=== PATIENT | female | born 1980 | race Caucasian/White ===

== ENCOUNTER 2016-08-19 18:40 | Emergency (ER) | payer SELFPAY ==
[2016-08-19 18:47] VITALS: BP 115/82; BMI 21.0
--- NOTE | 2016-08-19 20:57 | DR.GENAD ---
HPI - PCP Primary Care Physician: garcia - HPI Comment HPI Comment: PAIN WORSE TODAY. NO FEVER OR DYSURIA. HISTORY PANCREATITIS. NOT HOLDING DOWN FOOD AND BREARLY HOLDING DOWN FLUID. - Complaint/Symptoms Chief Complaint Doctors Comments: LUQ ABDOMINAL PAIN WITH N/V FOR SEVERAL DAYS. Chief Complaint:: pt c/o pain in luq pt has hx of pancreatisis - Nurses notes reviewed Nurses Notes Review: Yes - Source History Provided: Patient - Mode of Arrival Mode of Arrival: Ambulatory - Timing Onset of Chief Complaint: 08/16/16 Came on: Gradually - Duration Duration: Constant Duration: Days - Severity Severity: Moderate PMH - PMH Past Medical History: Yes Past Medical History: CHF, Hypertension Past Medical History Comment: pancreatisis Past Surgical History: Yes Surgical History: , Hysterectomy Past Surgical History Comment: rt cw pac - Family History History of Family Medical Conditions: Yes Family Medical History: Hypertension - Social History Alcohol Use: None Do you use any recreational Drugs:: No Lives With: Family Lives Where: Home - infectious screening In the last 2 months have you had wt loss of >10#?: NO Have you had fever, night sweats or hemotysis?: No Have you traveled outside the country in the last 6 months?: No Isolation: Standard ROS - Review of Systems Constitutional: Weakness, Fatigue, Loss of Appetite. negative: Chills, Fever Eyes: No Symptoms Reported. negative: Eye Pain, Discharge ENTM: No Symptoms Reported. negative: Ear Pain, Nose Discharge, Nose Congestion , Throat Pain Respiratoy: No Symptoms Reported. negative: Productive Cough, Non-Productive Cough, Short of Breath, Wheezing, Hemoptysis Cardiovascular: negative: Chest Pain, Edema, Palpitations, Syncope Gastrointestinal/Abdominal: Abdominal Pain, Nausea, Vomiting. negative: Diarrhea Genitourinary: No Symptoms Reported. negative: Dysuria, Frequency, Hematuria Neurological: Headache, Weakness, Dizziness Musculoskeletal: Muscle Pain Integumentary: Dryness Endocrine: No Symptoms Reported All Other Systems: Reviewed and Negative PE - Vital Signs Vitals: Temperature 98.4 F Pulse Rate 76 Respiratory Rate 18 Blood Pressure 115/82 O2 Sat by Pulse Oximetry 99 - General Limitations: No Limitations General Appearance: Alert - Head Head Exam: Normal Inspection - Eyes Eye exam: Normal Appearance - ENT ENT Exam: Normal External Ear Exam External Ear Exam: Normal External Inspection TM/Canal Exam: Bilateral Normal Nose Exam: Normal Nose Exam Mouth Exam: Normal Inspection Throat Exam: Normal Inspection - Neck Neck Exam: Normal Inspection - Chest Chest Inspection: Normal Inspection - Respiratory Respiratory Exam: Normal Lung Sounds Bilat Respiratory Exam: Bilateral Clear to Auscultation - Cardiovascular Cardiovascular Exam: Regular Rate, Normal Rhythm, Normal Heart Sounds - Abdominal Exam Abdominal Exam: Normal Bowel Sounds, Soft, Tenderness - Extremities Extremities Exam: Normal Inspection - Back Back Exam: Normal Inspection - Neurologic Neurological Exam: Alert, Oriented X3 - Psychiatric Psychiatric Exam: Anxious - Skin Skin Exam: Normal Color MDM - Additional Information Additional Information Obtained From: Family - Differential Diagnosis Differential Diagnosis: ABDOMINAL PAIN, PUD, PANCREATITIS UTI, Course - Treatment Treatment: SEE ORDERS. IM NAUSEA AND PAIN MED IN ED. - Reevaluation 1st: Improved - Education/Counseling Education/Counseling: Patient, Family, Education Educated On: Treatment, Diagnosis, Needs for Follow Up ROR - Labs Reviewed Laboratory Results Reviewed?: Yes Result Diagrams: 08/19/16 21:13 08/19/16 21:13 Laboratory: WBC 6.0 X10^3/uL (3.6-10.0) 08/19/16 21:13 RBC 4.46 X10^6/uL (3.5-5.4) 08/19/16 21:13 Hgb 13.4 g/dL (12.0-16.0) 08/19/16 21:13 Hct 39.7 % (36.0-47.0) 08/19/16 21:13 MCV 88.9 fL (80.0-100.0) 08/19/16 21:13 MCH 30.1 pg (27.0-34.0) 08/19/16 21:13 MCHC 33.8 g/dL (33.0-35.0) 08/19/16 21:13 RDW 13.9 % (11.6-16.5) 08/19/16 21:13 Plt Count 196 X10^3/uL (150.0-450.0) 08/19/16 21:13 MPV 9.1 fL (7.4-11.0) 08/19/16 21:13 Neut % 50.8 % (42.0-75.0) 08/19/16 21:13 Lymph % 36.8 % (21.0-51.0) 08/19/16 21:13 M[place]racken % 8.3 % (0.0-13.0) 08/19/16 21:13 Eos % 3.6 % (0.9-2.9) H 08/19/16 21:13 Baso % 0.5 % (0.2-1.0) 08/19/16 21:13 Neut # 3.0 x10^3/uL (2.2-4.8) 08/19/16 21:13 Lymph # 2.2 X10^3/uL (1.3-2.9) 08/19/16 21:13 [place]racken # 0.5 x10^3/uL (0.3-0.8) 08/19/16 21:13 Eos # 0.2 x10^3/uL (0.0-0.2) 08/19/16 21:13 Baso # 0.0 X10^3/uL (0.0-0.1) 08/19/16 21:13 Absolute Nucleated RBC 0.2 /100WBC 08/19/16 21:13 Sodium 139 mmol/L (136-145) 08/19/16 21:13 Corrected Sodium TNP 08/19/16 21:13 Potassium 5.0 mmol/L (3.5-5.1) 08/19/16 21:13 Chloride 105 mmol/L (98-107) 08/19/16 21:13 Carbon Dioxide 25.8 mmol/L (21-32) 08/19/16 21:13 BUN 5 mg/dL (7-18) L 08/19/16 21:13 Creatinine 0.78 mg/dL (0.55-1.02) 08/19/16 21:13 Est GFR (MDRD) Af Amer > 60 (>60) 08/19/16 21:13 Est GFR (MDRD) Non-Af > 60 (>60) 08/19/16 21:13 Glucose 83 mg/dL (65-99) 08/19/16 21:13 Calcium 8.7 mg/dL (8.5-10.1) 08/19/16 21:13 Corrected Calcium TNP 08/19/16 21:13 Total Bilirubin 0.30 mg/dL (0.2-1.0) 08/19/16 21:13 AST 26 Units/L (15-37) 08/19/16 21:13 ALT 19 Units/L (12-78) 08/19/16 21:13 Alkaline Phosphatase 122 Units/L (46-116) H 08/19/16 21:13 Total Protein 7.8 g/dL (6.4-8.2) 08/19/16 21:13 Albumin 4.1 g/dL (3.4-5.0) 08/19/16 21:13 Globulin 3.7 g/dL (2.5-4.5) 08/19/16 21:13 Albumin/Globulin Ratio 1.1 Ratio (1.1-2.1) 08/19/16 21:13 Amylase 30 Units/L (25-115) 08/19/16 21:13 Lipase 43 Units/L (73-393) L 08/19/16 21:13 Specimen Type Clean catch urine 08/19/16 21:15 Urine Color Yellow (YELLOW) 08/19/16 21:15 Urine Appearance Clear (CLEAR) 08/19/16 21:15 Urine pH 6.0 (5.0 - 8.0) 08/19/16 21:15 Ur Specific [place] 1.010 (1.000-1.030) 08/19/16 21:15 Urine Protein Negative (NEGATIVE) 08/19/16 21:15 Urine Glucose (UA) Negative (NEGATIVE) 08/19/16 21:15 Urine Ketones Negative (NEGATIVE) 08/19/16 21:15 Urine Occult Blood 2+ (NEGATIVE) 08/19/16 21:15 Urine Nitrite Negative (NEGATIVE) 08/19/16 21:15 Urine Bilirubin Negative (NEGATIVE) 08/19/16 21:15 Urine Urobilinogen Normal (NORMAL) 08/19/16 21:15 Ur Leukocyte Esterase Negative (NEGATIVE) 08/19/16 21:15 Urine RBC 1-2 /HPF (NEGATIVE) 08/19/16 21:15 Urine WBC 4-6 /HPF (NEGATIVE) 08/19/16 21:15 Ur Squamous Epith Cells Few /HPF (NEGATIVE) 08/19/16 21:15 Urine Bacteria Trace /HPF (NEGATIVE) 08/19/16 21:15 Ur Culture Indicated? No/not indicated 08/19/16 21:15 - Diagnosis Discharge Problem: Abdominal pain Qualifiers: Abdominal location: generalized Qualified Code(s): R10.84 - Generalized abdominal pain Gastritis Qualifiers: Gastritis type: unspecified gastritis Chronicity: acute Gastritis bleeding: without bleeding Qualified Code(s): K29.00 - Acute gastritis without bleeding Nausea & vomiting Qualifiers: Vomiting type: bilious vomiting Qualified Code(s): R11.14 - Bilious vomiting - Discharge Plan Disposition: HOME, SELF-CARE Condition: Stable Prescriptions: Ondansetron HCl [Zofran Tab 4 mg] 4 mg PO Q8H PRN #12 tab PRN Reason: Nausea/Vomiting Ranitidine HCl [ZANTAC TAB 150 MG *] 150 mg PO BID #60 tab - Follow ups/Referrals Follow ups/Referrals: ONDINA PACE [Primary Care Provider] - 1 day - Instructions Instructions: Abdominal Pain, Adult, [id number], Nausea and Vomiting, Adult, [id number] Additional Instructions: RETURN TO ED IF WORSE.
[2016-08-19] MEDS ORDERED: DEMEROL INJ IM ONE (21:22)
[2016-08-19] MEDS ORDERED: ZOFRAN INJ 4 MG VIAL IM ONE (21:22)
[2016-08-19 21:24] LABS: BILIRUBIN,URINE NEGATIVE (NEGATIVE); BLOOD/HEMOGLOBIN,URINE 2+ (NEGATIVE); GLUCOSE, URINE NEGATIVE (NEGATIVE); KETONES,URINE NEGATIVE (NEGATIVE); LEUKOCYTE ESTERASE ,URINE NEGATIVE (NEGATIVE); NITRITES,URINE NEGATIVE (NEGATIVE); PROTEIN,URINE NEGATIVE (NEGATIVE); UROBILINOGEN,URINE NORMAL (NORMAL)
[2016-08-19] MEDS ORDERED: DEMEROL INJ ONE (21:25)
[2016-08-19] MEDS ORDERED: ZOFRAN INJ 4 MG VIAL ONE (21:25)
[2016-08-19 21:31] LABS: APPEARANCE,URINE CLEAR (CLEAR); COLOR,URINE YELLOW (YELLOW)
[2016-08-19 21:32] LABS: BACTERIA,URINE TRACE /HPF (NEGATIVE); SQUAMOUS EPITHELIAL CELL,UR FEW /HPF (NEGATIVE)
[2016-08-19 21:34] LABS: BASOPHILS % (AUTO) 0.5 % (0.2-1.0); EOSINOPHILS # (AUTO) 0.2 x10^3/uL (0.0-0.2); EOSINOPHILS % (AUTO) 3.6 % (0.9-2.9); HEMATOCRIT 39.7 % (36.0-47.0); HEMOGLOBIN 13.4 g/dL (12.0-16.0); LYMPHOCYTES # (AUTO) 2.2 X10^3/uL (1.3-2.9); LYMPHOCYTES % (AUTO) 36.8 % (21.0-51.0); MEAN CORPUSCULAR HEMOGLOBIN 30.1 pg (27.0-34.0); MEAN CORPUSCULAR HGB CONC 33.8 g/dL (33.0-35.0); MEAN CORPUSCULAR VOLUME 88.9 fL (80.0-100.0); MEAN PLATELET VOLUME 9.1 fL (7.4-11.0); MONOCYTES # (AUTO) 0.5 x10^3/uL (0.3-0.8); MONOCYTES % (AUTO) 8.3 % (0.0-13.0); NEUTROPHILS % (AUTO) 50.8 % (42.0-75.0); PLATELET COUNT 196 X10^3/uL (150.0-450.0); RED BLOOD COUNT 4.46 X10^6/uL (3.5-5.4); RED CELL DISTRIBUTION WIDTH 13.9 % (11.6-16.5)
[2016-08-19 21:41] LABS: ALANINE AMINOTRANSFERASE 19 Units/L (12-78); ALBUMIN 4.1 g/dL (3.4-5.0); ALKALINE PHOSPHATASE 122 Units/L (46-116); AMYLASE 30 Units/L (25-115); ASPARTATE AMINO TRANSFERASE 26 Units/L (15-37); BLOOD UREA NITROGEN 5 mg/dL (7-18); CALCIUM 8.7 mg/dL (8.5-10.1); CARBON DIOXIDE 25.8 mmol/L (21-32); CHLORIDE 105 mmol/L (98-107); CREATININE 0.78 mg/dL (0.55-1.02); GLUCOSE 83 mg/dL (65-99); LIPASE 43 Units/L (73-393); SODIUM 139 mmol/L (136-145); TOTAL PROTEIN 7.8 g/dL (6.4-8.2); eGFR BLACK RACES > 60 (>60); eGFR NON BLACK RACES > 60 (>60)
== END 2016-08-19 22:19 | disposition home or self-care (01) ==
LOC: ER 18:50
DX: R10.84 Generalized abdominal pain (principal); K29.00 Acute gastritis without bleeding; R11.14 Bilious vomiting
CPT/HCPCS: 36415; 80053; 81001; 82150; 83690; 85025; 96372; 99282; 99283; J2175; J2405